=== PATIENT | female | born 1955 | race Caucasian/White ===

== ENCOUNTER → 2022-04-03 | Day surgery (SDC) | payer MEDICARE, BC ==
[2022-03-28 10:03] LABS: BASOPHILS % (AUTO) 0.7 % (0-1); EOSINOPHILS # (AUTO) 0.1 X10'3 (0-0.9); EOSINOPHILS % (AUTO) 2.3 % (0-6); LYMPHOCYTES # (AUTO) 1.2 X10'3 (1.1-4.8); LYMPHOCYTES % (AUTO) 25.1 % (21-51); MEAN CORPUSCULAR HGB CONC 33.3 g/dL (33.0-36.5); MEAN CORPUSCULAR VOLUME 87.1 FL (78-98); MEAN PLATELET VOLUME 8.5 FL (7.4-10.4); MONOCYTES # (AUTO) 0.3 X10'3 (0-0.9); MONOCYTES % (AUTO) 5.6 % (2-12); NEUTROPHILS # (AUTO) 3.2 X10'3 (1.8-7.7); NEUTROPHILS % (AUTO) 66.3 % (42-75); PRE OP HEMATOCRIT 40.7 % (35.0-45.0); PRE OP HEMOGLOBIN 13.6 g/dL (12.0-16.0); PRE OP PLATELET COUNT 226 X10'3 (140-440); RED BLOOD COUNT 4.68 X10'6 (4.20-5.60); RED CELL DISTRIBUTION WIDTH 14.1 % (11.5-14.5)
[2022-03-28 10:15] LABS: ALBUMIN/GLOBULIN RATIO 1.1 (1.1-1.5); ALKALINE PHOSPHATASE 135 IU/L (46-116); BLOOD UREA NITROGEN 19 MG/DL (7-18); BUN/CREATININE RATIO 23.2 (6.6-38.0); CALCIUM 9.6 MG/DL (8.5-10.1); CHLORIDE 105 MMOL/L (99-107); CREATININE 0.82 MG/DL (0.40-0.90); PRE OP ALT 25 U/L (30-65); PRE OP ANION GAP 7 (8-16); PRE OP AST 20 U/L (10-37); PRE OP BILIRUB, TOTAL 0.5 MG/DL (0.0-1.0); PRE OP GLUCOSE 107 MG/DL (70-104); PRE OP POTASSIUM 4.2 MMOL/L (3.4-5.1); PRE OP SODIUM 142 MMOL/L (135-145); TOTAL CARBON DIOXIDE 29.9 MMOL/L (24-32); TOTAL PROTEIN 7.8 G/DL (6.4-8.2); eGFR 69 ML/MIN
[~2022-04-03] VITALS: Ht 162.6 cm; Wt 80.4 kg
[~2022-04-03] MED LIST: ATOR20TA66 PO; IBUP-1986 PO; LIDOCAINE 1%/EPI 1:100,000 inj. 10 ML multi-dose vial ONE; LIDOcaine 2% (20mg/ml) 5ml vial ONE; LISI20TA28 PO; TETRACAINE 0.5% 4 ML OPHTHALMIC DROPS ONE; ceFAZolin inj. 2,000 MG in dextrose 5%-water 100 ML IV ONE; famotidine 20mg tablet PO ONE; fentaNYL/PF 50MCG/1 ML 2ML syringe IV PRN; fentaNYL/PF 50MCG/1 ML 2ML syringe ONE; hydrALAZINE 20mg/ml inj. IV PRN; labetalol 20mg/4ml (5mg/ml) syringe IV PRN; midazolam 1 mg/ML 2ml injection ONE; morphine 2 MG/ML inj. syringe IV PRN; morphine 4 MG/ML inj SYRINge IV PRN; ondansetron/PF 4mg/2ml inj IV PRN; propofol inj 20 ML IV ONE; ringers solution, lacted 1,000 ML IV SCH
[2022-04-03 08:15] VITALS: BP 116/59
--- NOTE | 2022-04-03 08:15 | NUR ---
Received from OR via [facility] , accompanied by Anesthesiologist MERCEDES and report given by Anesthesiolgist. PATIENT WITH 20GPIV IN LEFT UE RUNNING LR AT 100. 2 PATCHES OVER BILATERAL EYES. NO DRAINAGE. PATIENT WITH2 20G PIV IN LEFT UE RUNNING LR AT 100. VSS Addendum: 04/03/22 at 0824 by Cedric Crabtree RN, RN Amended: Links added.
[2022-04-03 08:20] VITALS: BP 116/56
[2022-04-03 08:30] VITALS: BP 118/55
[2022-04-03 08:40] VITALS: BP 106/52
--- NOTE | 2022-04-03 08:55 | NUR ---
ALL DISCHARGE PAPERWORK COMPLETED AND VSS. ALL QUESTIONS ANSWERED AND PATIENT UNDERSTANDS INSTRUCTIONS. PATIENT OUT VIA WHEELCHAIR TO PERSONAL VEHICLE WHERE SON DROVE PATIENT HOME. Addendum: 04/03/22 at 0935 by Cedric Crabtree RN, RN Amended: Links added.
[2022-04-03 18:21] VITALS: BP 126/68
[2022-04-03 18:24] VITALS: BP 126/68
== END | disposition home or self-care (01) ==
LOC: PAS 05:28
PROVIDERS: ATTEND Specialist
DX: H02.831 Dermatochalasis of right upper eyelid (principal); H02.834 Dermatochalasis of left upper eyelid; K21.9 Gastro-esophageal reflux disease without esophagitis; M19.90 Unspecified osteoarthritis, unspecified site; E78.5 Hyperlipidemia, unspecified; Z79.899 Other long term (current) drug therapy; Z90.710 Acquired absence of both cervix and uterus; Z90.49 Acquired absence of other specified parts of digestive tract; Z98.890 Other specified postprocedural states; Z88.6 Allergy status to analgesic agent; Z91.041 Radiographic dye allergy status; Z91.013 Allergy to seafood
CPT/HCPCS: 15822; 36415; 80053; 82948; 85025; 93005; J0690; J2250; J2704; J3010; J3490; J7030; J7060; J7120; Z7506; Z7512; A4215; A4618; A6410; A7000